=== PATIENT | female | born 1965 | race Caucasian/White ===

== ENCOUNTER 2019-02-28 11:00 | Outpatient (RCR) | payer OTHER, SELFPAY ==
[2019-02-06 09:05] VITALS: BP 158/92; PULSE 56; RESP 16; TEMP 36.3; BMI 39.6
--- NOTE | 2019-02-06 12:08 | PCM.WC.HP ---
(1) Wound of right lower extremity Status: Chronic Current Visit: Yes Code(s): S81.801A - Unspecified open wound, right lower leg, initial encounter Comment: Anterior and posterior right lower extremity traumatic, penetrating with fat layer exposed. (2) Bilateral lower extremity edema Status: Acute Current Visit: Yes Code(s): R60.0 - Localized edema History of Present Illness Date of Service: 02/06/19 Chief Complaint: Nonhealing right lower extremity wound status post work injury. History of Wound: Ms. Rodarte is a 53-year-old who was referred here due to nonhealing right lower extremity wound. 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 Initially seen in emergency room and had stitches to the wound. Followed up at an urgent care for removal however, on removal of the sutures posterior right lower extremity wounds was sensitive opened up. Subsequently seen by her primary care physician and was told to pack wound with gauze/Hydrogen peroxide which she indeed twice a day and again noted worsening of the wound. She reports drainage from the wound but denies chills, fever otherwise feeling of unwell. She states that she works for 12 hours standing on hard concrete most of the day. Past Medical History Past Medical History: Chronic Problems Wound of right lower extremity (Chronic) Anterior and posterior right lower extremity traumatic, penetrating with fat layer exposed. Allergies/Adverse Reactions: Allergies No Known Allergies Allergy (Verified 02/06/19 09:43) Home Medications: Ambulatory Orders Medication Instructions Recorded Allopurinol 100 mg PO DAILY PRN 02/06/19 Ciprofloxacin [Cipro] 500 mg PO BID 02/06/19 Hydrochlorothiazide mg PO DAILY 02/06/19 Metoprolol Tartrate [Lopressor] 100 mg PO DAILY 02/06/19 Pantoprazole Sodium [Protonix] 40 mg PO DAILY 02/06/19 Smoking Status: Never smoker Review of Systems Constitutional: Denies: Anorexia, Chills, Fever Eyes: Denies: Blurred vision, Pain, Redness HEENT: Denies: Difficulty Swallowing Cardiovascular: Denies: Chest Pain, Chest Tightness Respiratory: Denies: Hemoptysis Gastrointestinal: Denies: Abdominal Pain, Hematemesis, Vomiting Genitourinary: Denies: Hematuria Skin: Denies: Jaundice - Physical Exam Vital Signs Temp Pulse Resp BP 97.3 F L 56 L 16 158/92 H 02/06/19 09:05 02/06/19 09:05 02/06/19 09:05 02/06/19 09:05 General: Alert, Oriented x3, Cooperative, No apparent distress HEENT: Atraumatic, Normocephalic Oral: Moist Mucosa Neck: Supple Lungs: Normal air movement Cardiovascular: Regular rate, Regular Rhythm, Normal S1, Normal S2 Abdomen: Non Tender, Obese Extremities: No cyanosis, Edema Skin: Ulcer/ Wound Wound Measurements and Assessment WC - Nurse 1 - General Ulcer Measurement Start: 02/06/19 09:04 Freq: Status: Active Protocol: Activity Type Activity Date Activity User E-Sign Co-Sign Detail Recorded Client Recorded Date Recorded By Document 02/06/19 09:05 [facility] [id number] 02/06/19 09:30 [facility] 02/06/19 09:05 Wound Center Nurse 1 [Ulcer Assessment] #2- RT CALF CLUSTER -Combined with other wound No -Current Size (cm) - Length 1 -Current Size (cm) - Width 5.8 -Current Size (cm) - Depth 0.5 -Total Square Cm 5.8 -Date of Last Picture (Recall this 02/06/19 field) -Photo Taken Yes -Epithelialization None Present -Tunneling No -Undermining/Tunneling No -Circular Undermining No -Exudate Amt Small -Exudate Type Serosanguineous -Wound Margin Distinct, Outline Attached -Granulation Amt Small (1-33%) -Granulation Quality Red -Slough/Fibrin No -Necrosis Amt Large (67-100%) -Necrotic Tissue Type Adherent Slough -Texture (Maria Guadalupe-wound Skin Appearance) Assessed Scarring -Moisture (Maria Guadalupe-wound Skin Appearance Assessed ) -Color (Maria Guadalupe-wound Skin Appearance) Assessed Erythema -Temperature (Maria Guadalupe-wound Skin No Abnormality Appearance) (Pt Warm) -Tenderness on Palpation (Maria Guadalupe-wound Yes Skin Appearance) -Ulcer Cleansing Rinsed/ Irrigated with Saline -Foul Odor after Cleansing No -Anesthetic Used 5% Lidocaine Gel #1- RT HAWKINS -Combined with other wound No -Current Size (cm) - Length 0.1 -Current Size (cm) - Width 1.6 -Current Size (cm) - Depth 0.2 -Total Square Cm 0.16 -Date of Last Picture (Recall this 02/06/19 field) -Photo Taken Yes -Epithelialization None Present -Tunneling No -Undermining/Tunneling No -Circular Undermining No -Exudate Amt None Present -Wound Margin Distinct, Outline Attached -Granulation Amt None Present (0 %) -Slough/Fibrin Yes -Necrosis Amt Large (67-100%) -Necrotic Tissue Type Adherent Slough -Texture (Maria Guadalupe-wound Skin Appearance) Assessed Scarring -Moisture (Maria Guadalupe-wound Skin Appearance Assessed ) Dry/Scaly -Color (Maria Guadalupe-wound Skin Appearance) Assessed Erythema -Temperature (Maria Guadalupe-wound Skin No Abnormality Appearance) (Pt Warm) -Tenderness on Palpation (Maria Guadalupe-wound No Skin Appearance) -Ulcer Cleansing Rinsed/ Irrigated with Saline -Foul Odor after Cleansing No -Anesthetic Used 5% Lidocaine Gel [Edema Assessment] -Lower Limb Edema Present Yes -Right Calf (cm) 42.5 -Right Ankle (cm) 28.9 -Left Calf (cm) 40 -Left Ankle (cm) 24.6 WC - Nurse 2 - General Ulcer CM Notes Start: 02/06/19 09:04 Freq: Status: Active Protocol: Activity Type Activity Date Activity User E-Sign Co-Sign Detail Recorded Client Recorded Date Recorded By Document 02/06/19 09:46 MW [id number] 02/06/19 09:54 MW 02/06/19 09:46 Wound Center Nurse 2 [Procedure/Treatment] #2- RT CALF CLUSTER -Time 09:46 -Correct Patient Yes -Correct Side, Site, Position Yes -Correct Procedure Yes -Procedure Performed Yes -Type of Procedure Debridement -Clinical Debridement Subcutaneous -Post Debridement Size (cm) - Length 1.2 -Post Debridement Size (cm) - Width 6.0 -Post Debridement Size (cm) - Depth 1.2 -Total Square Cm 7.20 -Wound/Ulcer Outcome Not Healed -Ulcer Cleansing Rinsed/ Irrigated with Saline -Foul Odor after Cleansing No -Bioengineered Tissue No -Bleeding Controlled with Pressure -Offloading No -Treatment Response Procedure Tolerated Well #1- RT HAWKINS -Time 09:46 -Correct Patient Yes -Correct Side, Site, Position Yes -Correct Procedure Yes -Procedure Performed Yes -Type of Procedure Debridement -Clinical Debridement Subcutaneous -Post Debridement Size (cm) - Length 0.4 -Post Debridement Size (cm) - Width 4.3 -Post Debridement Size (cm) - Depth 0.1 -Total Square Cm 1.72 -Wound/Ulcer Outcome Not Healed -Ulcer Cleansing Rinsed/ Irrigated with Saline -Foul Odor after Cleansing No -Bioengineered Tissue No -Bleeding Controlled with Pressure -Offloading No -Treatment Response Procedure Tolerated Well [See Physician Procedure note for Specifics] Pain Scale: 0-10 Numeric [Pain] -Is Patient Pain Free? Yes Musculoskeletal: No Muscle Wasting Neurological: Cranial nerves II-XII grossly intact Psych/Mental Status: Normal Affect Debridement Note Post-Debridement Measurements/Treatment WC - Nurse 2 - General Ulcer CM Notes Start: 02/06/19 09:04 Freq: Status: Active Protocol: Activity Type Activity Date Activity User E-Sign Co-Sign Detail Recorded Client Recorded Date Recorded By Document 02/06/19 09:46 MW [id number] 02/06/19 09:54 MW 02/06/19 09:46 Wound Center Nurse 2 #2- RT CALF CLUSTER -Time 09:46 -Correct Patient Yes -Correct Side, Site, Position Yes -Correct Procedure Yes -Procedure Performed Yes -Type of Procedure Debridement -Clinical Debridement Subcutaneous -Post Debridement Size (cm) - Length 1.2 -Post Debridement Size (cm) - Width 6.0 -Post Debridement Size (cm) - Depth 1.2 -Total Square Cm 7.20 -Wound/Ulcer Outcome Not Healed -Ulcer Cleansing Rinsed/ Irrigated with Saline -Foul Odor after Cleansing No -Bioengineered Tissue No -Bleeding Controlled with Pressure -Offloading No -Treatment Response Procedure Tolerated Well #1- RT HAWKINS -Time 09:46 -Correct Patient Yes -Correct Side, Site, Position Yes -Correct Procedure Yes -Procedure Performed Yes -Type of Procedure Debridement -Clinical Debridement Subcutaneous -Post Debridement Size (cm) - Length 0.4 -Post Debridement Size (cm) - Width 4.3 -Post Debridement Size (cm) - Depth 0.1 -Total Square Cm 1.72 -Wound/Ulcer Outcome Not Healed -Ulcer Cleansing Rinsed/ Irrigated with Saline -Foul Odor after Cleansing No -Bioengineered Tissue No -Bleeding Controlled with Pressure -Offloading No -Treatment Response Procedure Tolerated Well Pain Scale: 0-10 Numeric Is Patient Pain Free? Yes Wound debrided: Right lower ( Hawkins Cluster ) Wound Grade/Stage: Stage II Type of Debridement: Excisional debridement Anesthesia Used: 4% Lidocaine Solution Depth: Down to and including healthy tissue, in the subcutaneous layer Percentage of wound debrided: 100 Instrument Used: 3mm curette Tissue Removed: Slough and devitalized tissue Severity: Fat Layer Exposed Amount of bleeding with debridement: Mild Bleeding Controlled with: Pressure Patient tolerated procedure well - Additional Wound Wound debrided: Right lower posterior cluster Wound Grade/Stage: Stage III Type of Debridement: Excisional debridement Anesthesia Used: 4% Lidocaine Solution Depth: Down to and including healthy tissue, in the subcutaneous layer Percentage of wound debrided: 100 Instrument Used: 5mm curette Tissue Removed: Slough and devitalized tissue Severity: Fat Layer Exposed Amount of bleeding with debridement: Mild Bleeding Controlled with: Pressure Patient tolerated procedure: Patient tolerated procedure well Assessment/Plan Active Problems Wound of right lower extremity (Chronic) Anterior and posterior right lower extremity traumatic, penetrating with fat layer exposed. Bilateral lower extremity edema (Acute) Assessment: Nonhealing traumatic right lower extremity anterior and posterior ulcers status post work injury with fat layer exposed. Plan: Debridement done as documented above, procedure was well-tolerated. Posterior wound with significant depth and slough. Cultures taken. Aquacel daily with Adaptic over top. Double layer Tubigrip's with Tomi wrap for edema management. Light duty recommended. Advised patient to elevate her lower extremities when seated and in bed. All the questions were answered and she was advised to call with any further questions or concerns. Follow-up in 1 week for courtesy visit. This note was generated with [employer] dictation software. It may contain incorrect words, spelling, and punctuation that were not noted in checking the note before signing.
[2019-02-12 15:09] VITALS: BP 132/91; PULSE 61; RESP 20; TEMP 36.1; BMI 39.6
--- NOTE | 2019-02-12 15:23 | PN.PCM_ITS ---
(1) Wound of right lower extremity Status: Chronic Code(s): S81.801A - Unspecified open wound, right lower leg, initial encounter Comment: Anterior and posterior right lower extremity traumatic, penetrating with fat layer exposed. (2) Bilateral lower extremity edema Status: Chronic Code(s): R60.0 - Localized edema Type of Wound Date of Service: 02/12/19 Chief Complaint: Nonhealing right lower extremity wound status post work injury. History of Wound: Ms. Rodarte is a 53-year-old who was referred here due to nonhealing right lower extremity wound. 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 Initially seen in emergency room and had stitches to the wound. Followed up at an urgent care for removal however, on removal of the sutures posterior right lower extremity wounds was sensitive opened up. Subsequently seen by her primary care physician and was told to pack wound with gauze/Hydrogen peroxide which she indeed twice a day and again noted worsening of the wound. She reports drainage from the wound but denies chills, fever otherwise feeling of unwell. She states that she works for 12 hours standing on hard concrete most of the day. Progress of Wound: Improved - Physical Exam Vital Signs Temp Pulse Resp BP 96.9 F L 61 20 H 132/91 H 02/12/19 15:09 02/12/19 15:09 02/12/19 15:09 02/12/19 15:09 General: Alert, Oriented x3, Cooperative HEENT: Atraumatic Oral: Moist Mucosa Lungs: Normal air movement Cardiovascular: Regular rate Extremities: Capillary Refill Less than 3 Seconds, Edema, Peripheral Pulses Normal Skin: Ulcer/ Wound - right anterior lower leg and and right posterior lower leg Wound Measurements and Assessment - Nurse 1 - General Ulcer Measurement Start: 02/06/19 09:04 Freq: Status: Active Protocol: Activity Type Activity Date Activity User E-Sign Co-Sign Detail Recorded Client Recorded Date Recorded By Document 02/12/19 15:09 CAMMY [id number] 02/12/19 15:16 CAMMY 02/12/19 15:09 Wound Center Nurse 1 [Ulcer Assessment] #2- RT CALF CLUSTER -Combined with other wound No -Current Size (cm) - Length 0.8 -Current Size (cm) - Width 4.1 -Current Size (cm) - Depth 0.7 -Total Square Cm 3.28 -Photo Taken No -Epithelialization Small 1-33% -Tunneling No -Undermining/Tunneling No -Circular Undermining No -Exudate Amt Medium -Exudate Type Serosanguineous -Wound Margin Flat & Intact -Granulation Amt Large (67-100%) -Granulation Quality Red -Slough/Fibrin Yes -Necrosis Amt Medium (34-66%) -Necrotic Tissue Type Adherent Slough -Structure Exposed N/A -Texture (Maria Guadalupe-wound Skin Appearance) Assessed Localized Edema -Moisture (Maria Guadalupe-wound Skin Appearance Assessed ) Dry/Scaly -Color (Maria Guadalupe-wound Skin Appearance) Assessed -Temperature (Maria Guadalupe-wound Skin No Abnormality Appearance) (Pt Warm) -Tenderness on Palpation (Maria Guadalupe-wound No Skin Appearance) -Ulcer Cleansing Rinsed/ Irrigated with Saline -Foul Odor after Cleansing No -Anesthetic Used 4% Lidocaine Solution #1- RT SAMANIEGO -Combined with other wound No -Current Size (cm) - Length 0.4 -Current Size (cm) - Width 1 -Current Size (cm) - Depth 0.1 -Total Square Cm 0.4 -Photo Taken No -Epithelialization Small 1-33% -Tunneling No -Undermining/Tunneling No -Circular Undermining No -Exudate Amt Small -Exudate Type Serosanguineous -Wound Margin Flat & Intact -Granulation Amt Small (1-33%) -Granulation Quality [place] -Slough/Fibrin Yes -Necrosis Amt Large (67-100%) -Necrotic Tissue Type Adherent Slough -Structure Exposed N/A -Texture (Maria Guadalupe-wound Skin Appearance) Assessed Localized Edema -Moisture (Maria Guadalupe-wound Skin Appearance Assessed ) Dry/Scaly -Color (Maria Guadalupe-wound Skin Appearance) Assessed Hemosiderin Staining -Temperature (Maria Guadalupe-wound Skin No Abnormality Appearance) (Pt Warm) -Tenderness on Palpation (Maria Guadalupe-wound No Skin Appearance) -Ulcer Cleansing Rinsed/ Irrigated with Saline -Foul Odor after Cleansing No -Anesthetic Used 4% Lidocaine Solution [Edema Assessment] -Lower Limb Edema Present Yes -Right Calf (cm) 43.7 -Right Ankle (cm) 28.6 Musculoskeletal: No Tenderness to Palpation of Joints or Extremities Neurological: Neuro grossly intact Psych/Mental Status: Normal Affect, Appropriate Debridement Note Post-Debridement Measurements/Treatment WC - Nurse 2 - General Ulcer CM Notes Start: 02/06/19 09:04 Freq: Status: Active Protocol: Activity Type Activity Date Activity User E-Sign Co-Sign Detail Recorded Client Recorded Date Recorded By Document 02/06/19 09:46 MW [id number] 02/06/19 09:54 MW 02/06/19 09:46 Wound Center Nurse 2 #2- RT CALF CLUSTER -Time 09:46 -Correct Patient Yes -Correct Side, Site, Position Yes -Correct Procedure Yes -Procedure Performed Yes -Type of Procedure Debridement -Clinical Debridement Subcutaneous -Post Debridement Size (cm) - Length 1.2 -Post Debridement Size (cm) - Width 6.0 -Post Debridement Size (cm) - Depth 1.2 -Total Square Cm 7.20 -Wound/Ulcer Outcome Not Healed -Ulcer Cleansing Rinsed/ Irrigated with Saline -Foul Odor after Cleansing No -Bioengineered Tissue No -Bleeding Controlled with Pressure -Offloading No -Treatment Response Procedure Tolerated Well #1- RT SAMANIEGO -Time 09:46 -Correct Patient Yes -Correct Side, Site, Position Yes -Correct Procedure Yes -Procedure Performed Yes -Type of Procedure Debridement -Clinical Debridement Subcutaneous -Post Debridement Size (cm) - Length 0.4 -Post Debridement Size (cm) - Width 4.3 -Post Debridement Size (cm) - Depth 0.1 -Total Square Cm 1.72 -Wound/Ulcer Outcome Not Healed -Ulcer Cleansing Rinsed/ Irrigated with Saline -Foul Odor after Cleansing No -Bioengineered Tissue No -Bleeding Controlled with Pressure -Offloading No -Treatment Response Procedure Tolerated Well Pain Scale: 0-10 Numeric Is Patient Pain Free? Yes Wound debrided: right anterior lower leg Laterality: Right Type of Debridement: Excisional debridement Anesthesia Used: 5% Lidocaine Gel Depth: Down to and including healthy tissue, in the subcutaneous layer Percentage of wound debrided: 100 Instrument Used: 5mm curette Tissue Removed: Subcutaneous tissue and slough Severity: Fat Layer Exposed Amount of bleeding with debridement: Mild Bleeding Controlled with: Pressure Patient tolerated procedure well - Additional Wound Wound debrided: Right posterior lower leg Laterality: Right Type of Debridement: Excisional debridement Anesthesia Used: 5% Lidocaine Gel Depth: Down to and including healthy tissue, in the subcutaneous layer Percentage of wound debrided: 100 Instrument Used: 5mm curette Tissue Removed: Subcutaneous tissue and slough Severity: Fat Layer Exposed Amount of bleeding with debridement: Mild Bleeding Controlled with: Pressure Patient tolerated procedure: Patient tolerated procedure well Assessment/Plan Assessment: Nonhealing traumatic right lower extremity anterior and posterior ulcers status post work injury with fat layer exposed. Plan: Today was a courtesy visit for Dr. Obrien. Debridement done as documented above, procedure was well-tolerated. Patient completed antibiotics for cellulitis, which is improved. Cultures from 02/06/19 grew Anaerobic cocci and Provotella bivia. Will start her on Doxycycline and flagyl. Continue Aquacel daily with Adaptic over top. Double layer Tubigrip's for edema management. Will stop the KRZYSZTOF wrap while she is at work due to her having issues getting her shoe on with the KRZYSZTOF wrap. Light duty recommended. Advised patient to elevate her lower extremities when seated and in bed. All the questions were answered and she was advised to call with any further questions or concerns. Follow-up in 1 week. Code Visit [id number]: [id number] Alley subq tissue 20 sq cm/<
[2019-02-20 11:14] VITALS: BP 150/102; PULSE 101; RESP 20; TEMP 36.6; BMI 39.6
--- NOTE | 2019-02-20 12:49 | PCM.WC.PN ---
(1) Wound of right lower extremity Status: Chronic Current Visit: Yes Code(s): S81.801A - Unspecified open wound, right lower leg, initial encounter Comment: Anterior and posterior right lower extremity traumatic, penetrating with fat layer exposed. (2) Bilateral lower extremity edema Status: Chronic Current Visit: Yes Code(s): R60.0 - Localized edema Type of Wound Date of Service: 02/20/19 Chief Complaint: Nonhealing right lower extremity wound status post work injury. History of Wound: Ms. Rodarte is a 53-year-old who was referred here due to nonhealing right lower extremity wound. 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 Initially seen in emergency room and had stitches to the wound. Followed up at an urgent care for removal however, on removal of the sutures posterior right lower extremity wounds was sensitive opened up. Subsequently seen by her primary care physician and was told to pack wound with gauze/Hydrogen peroxide which she indeed twice a day and again noted worsening of the wound. She reports drainage from the wound but denies chills, fever otherwise feeling of unwell. She states that she works for 12 hours standing on hard concrete most of the day. Progress of Wound: Right anterior is almost healed. Right posterior is improved. - Physical Exam Vital Signs Temp Pulse Resp BP 97.8 F 101 H 20 H 150/102 H 02/20/19 11:14 02/20/19 11:14 02/20/19 11:14 02/20/19 11:14 General: Alert, Oriented x3, Cooperative HEENT: Atraumatic Oral: Moist Mucosa Lungs: Normal air movement Cardiovascular: Regular rate Extremities: Capillary Refill Less than 3 Seconds, Edema, Peripheral Pulses Normal Skin: Ulcer/ Wound - Right anterior lower leg almost healed, right posterior leg wound is improved Wound Measurements and Assessment WC - Nurse 1 - General Ulcer Measurement Start: 02/06/19 09:04 Freq: Status: Active Protocol: Activity Type Activity Date Activity User E-Sign Co-Sign Detail Recorded Client Recorded Date Recorded By Document 02/20/19 11:14 DL [id number] 02/20/19 11:22 DL 02/20/19 11:14 Wound Center Nurse 1 [Ulcer Assessment] #2- RT CALF CLUSTER -Current Size (cm) - Length 0.8 -Current Size (cm) - Width 3.8 -Current Size (cm) - Depth 0.6 -Total Square Cm 3.04 -Photo Taken No -Exudate Amt Small -Exudate Type Serosanguineous -Wound Margin Distinct, Outline Attached -Granulation Amt Medium (34-66%) -Granulation Quality Red -Necrosis Amt Medium (34-66%) -Necrotic Tissue Type Adherent Slough -Structure Exposed N/A -Texture (Maria Guadalupe-wound Skin Appearance) Scarring -Moisture (Maria Guadalupe-wound Skin Appearance No Abnormality ) -Color (Maria Guadalupe-wound Skin Appearance) Erythema,Rubor -Temperature (Maria Guadalupe-wound Skin No Abnormality Appearance) (Pt Warm) -Tenderness on Palpation (Maria Guadalupe-wound No Skin Appearance) -Ulcer Cleansing Wound Cleanser -Foul Odor after Cleansing No -Anesthetic Used 4% Lidocaine Solution #1- RT SAMANIEGO -Current Size (cm) - Length 0.5 -Current Size (cm) - Width 0.1 -Current Size (cm) - Depth 0.1 -Total Square Cm 0.05 -Photo Taken No -Exudate Amt None Present -Wound Margin Flat & Intact -Granulation Amt Large (67-100%) -Granulation Quality Pale -Necrosis Amt Small (1-33%) -Necrotic Tissue Type Adherent Slough -Structure Exposed N/A -Texture (Maria Guadalupe-wound Skin Appearance) Scarring -Moisture (Maria Guadalupe-wound Skin Appearance No Abnormality ) -Color (Maria Guadalupe-wound Skin Appearance) Hemosiderin Staining -Temperature (Maria Guadalupe-wound Skin No Abnormality Appearance) (Pt Warm) -Tenderness on Palpation (Maria Guadalupe-wound No Skin Appearance) -Ulcer Cleansing Wound Cleanser -Foul Odor after Cleansing No -Anesthetic Used 4% Lidocaine Solution [Edema Assessment] -Right Calf (cm) 40.7 -Right Ankle (cm) 26.2 WC - Nurse 2 - General Ulcer CM Notes Start: 02/06/19 09:04 Freq: Status: Active Protocol: Activity Type Activity Date Activity User E-Sign Co-Sign Detail Recorded Client Recorded Date Recorded By Document 02/20/19 12:07 CAMMY [id number] 02/20/19 12:10 CAMMY 02/20/19 12:07 Wound Center Nurse 2 [Procedure/Treatment] #2- RT CALF CLUSTER -Time 12:09 -Correct Patient Yes -Correct Side, Site, Position Yes -Correct Procedure Yes -Procedure Performed Yes -Type of Procedure Debridement -Clinical Debridement Subcutaneous -Post Debridement Size (cm) - Length 0.9 -Post Debridement Size (cm) - Width 4.2 -Post Debridement Size (cm) - Depth 0.8 -Total Square Cm 3.78 -Wound/Ulcer Outcome Not Healed -Ulcer Cleansing Rinsed/ Irrigated with Saline -Foul Odor after Cleansing No -Bioengineered Tissue No -Bleeding Controlled with Pressure -Offloading No -Treatment Response Procedure Tolerated Well #1- RT SAMANIEGO -Time 12:09 -Correct Patient Yes -Correct Side, Site, Position Yes -Correct Procedure Yes -Procedure Performed Yes -Type of Procedure Debridement -Clinical Debridement Subcutaneous -Post Debridement Size (cm) - Length 0.2 -Post Debridement Size (cm) - Width 0.9 -Post Debridement Size (cm) - Depth 0.2 -Total Square Cm 0.18 -Wound/Ulcer Outcome Not Healed -Ulcer Cleansing Rinsed/ Irrigated with Saline -Foul Odor after Cleansing No -Bioengineered Tissue No -Bleeding Controlled with Pressure -Offloading No -Treatment Response Procedure Tolerated Well [See Physician Procedure note for Specifics] Pain Scale: 0-10 Numeric [Pain] -Is Patient Pain Free? Yes Musculoskeletal: No Tenderness to Palpation of Joints or Extremities Neurological: Neuro grossly intact Psych/Mental Status: Normal Affect, Appropriate Debridement Note Post-Debridement Measurements/Treatment WC - Nurse 2 - General Ulcer CM Notes Start: 02/06/19 09:04 Freq: Status: Active Protocol: Activity Type Activity Date Activity User E-Sign Co-Sign Detail Recorded Client Recorded Date Recorded By Document 02/06/19 09:46 MW [id number] 02/06/19 09:54 MW Document 02/12/19 15:31 [id number] 02/12/19 15:35 Document 02/20/19 12:07 [id number] 02/20/19 12:10 02/06/19 02/12/19 02/20/19 09:46 15:31 12:07 Wound Center Nurse 2 #2- RT CALF CLUSTER -Time 09:46 15:34 12:09 -Correct Patient Yes Yes Yes -Correct Side, Site, Position Yes Yes Yes -Correct Procedure Yes Yes Yes -Procedure Performed Yes Yes Yes -Type of Procedure Debridement Debridement Debridement -Clinical Debridement Subcutaneous Subcutaneous Subcutaneous -Post Debridement Size (cm) - Length 1.2 5.2 0.9 -Post Debridement Size (cm) - Width 6.0 1.2 4.2 -Post Debridement Size (cm) - Depth 1.2 1.0 0.8 -Total Square Cm 7.20 6.24 3.78 -Wound/Ulcer Outcome Not Healed Not Healed Not Healed -Ulcer Cleansing Rinsed/ Rinsed/ Rinsed/ Irrigated with Irrigated with Irrigated with Saline Saline Saline -Foul Odor after Cleansing No No No -Bioengineered Tissue No No No -Bleeding Controlled with Pressure Pressure Pressure -Offloading No No No -Treatment Response Procedure Procedure Procedure Tolerated Well Tolerated Well Tolerated Well #1- RT SAMANIEGO -Time 09:46 15:34 12:09 -Correct Patient Yes Yes Yes -Correct Side, Site, Position Yes Yes Yes -Correct Procedure Yes Yes Yes -Procedure Performed Yes Yes Yes -Type of Procedure Debridement Debridement Debridement -Clinical Debridement Subcutaneous Subcutaneous Subcutaneous -Post Debridement Size (cm) - Length 0.4 0.4 0.2 -Post Debridement Size (cm) - Width 4.3 0.8 0.9 -Post Debridement Size (cm) - Depth 0.1 0.3 0.2 -Total Square Cm 1.72 0.32 0.18 -Wound/Ulcer Outcome Not Healed Not Healed Not Healed -Ulcer Cleansing Rinsed/ Rinsed/ Rinsed/ Irrigated with Irrigated with Irrigated with Saline Saline Saline -Foul Odor after Cleansing No No No -Bioengineered Tissue No No No -Bleeding Controlled with Pressure Pressure Pressure -Offloading No No No -Treatment Response Procedure Procedure Procedure Tolerated Well Tolerated Well Tolerated Well Pain Scale: 0-10 Numeric Is Patient Pain Free? Yes Yes Yes Wound debrided: Right anterior lower leg Type of Debridement: Excisional debridement Anesthesia Used: 4% Lidocaine Solution Depth: Down to and including healthy tissue Percentage of wound debrided: 100 Instrument Used: 3mm curette Tissue Removed: Subcutaneous tissue and slough Severity: Limited To Skin Breakdown Amount of bleeding with debridement: Mild Bleeding Controlled with: Pressure Patient tolerated procedure well - Additional Wound Wound debrided: Right posterior lower leg Type of Debridement: Excisional debridement Anesthesia Used: 4% Lidocaine Solution Depth: Down to and including healthy tissue, in the subcutaneous layer Percentage of wound debrided: 100 Instrument Used: 5mm curette Tissue Removed: subcutaneous tissue and slough Severity: Fat Layer Exposed Amount of bleeding with debridement: Mild Bleeding Controlled with: Pressure Patient tolerated procedure: Patient tolerated procedure well Assessment/Plan Active Problems Wound of right lower extremity (Chronic) Anterior and posterior right lower extremity traumatic, penetrating with fat layer exposed. Bilateral lower extremity edema (Chronic) Assessment: Nonhealing traumatic right lower extremity anterior and posterior ulcers status post work injury with fat layer exposed. Plan: Today was a courtesy visit for Dr. Obrien. Debridement done as documented above, procedure was well-tolerated. Patient completed antibiotics for cellulitis, which is improved. Cultures from 02/06/19 grew Anaerobic cocci and Provotella bivia. Will start her on Doxycycline and flagyl. Continue Aquacel daily with Adaptic over top. Double layer Tubigrip's for edema management. Will stop the KRZYSZTOF wrap while she is at work due to her having issues getting her shoe on with the KRZYSZTOF wrap. She is doing much better and would like to return to her normal activity at work. She is allowed to do normal activity as long as she is wearing her compression at work and she is elevating her legs when on her breaks. She verbalized understanding. All the questions were answered and she was advised to call with any further questions or concerns. Follow-up in 1 week. Code Visit [id number]: [id number] Alley subq tissue 20 sq cm/<
[2019-02-28 11:13] VITALS: BP 127/74; PULSE 57; RESP 18; TEMP 36.5; BMI 39.6
--- NOTE | 2019-02-28 19:23 | PCM.WC.PN ---
(1) Wound of right lower extremity Status: Chronic Current Visit: Yes Code(s): S81.801A - Unspecified open wound, right lower leg, initial encounter Comment: Anterior and posterior right lower extremity traumatic, penetrating with fat layer exposed. (2) Bilateral lower extremity edema Status: Chronic Current Visit: Yes Code(s): R60.0 - Localized edema Type of Wound Date of Service: 02/28/19 Chief Complaint: Nonhealing right lower extremity wound status post work injury. History of Wound: Ms. Rodarte is a 53-year-old who was referred here due to nonhealing right lower extremity wound. 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 Initially seen in emergency room and had stitches to the wound. Followed up at an urgent care for removal however, on removal of the sutures posterior right lower extremity wounds was sensitive opened up. Subsequently seen by her primary care physician and was told to pack wound with gauze/Hydrogen peroxide which she indeed twice a day and again noted worsening of the wound. She reports drainage from the wound but denies chills, fever otherwise feeling of unwell. She states that she works for 12 hours standing on hard concrete most of the day. Progress of Wound: Right [place]/anterior is healed. Right posterior is improving. No new concerns at this time. - Physical Exam Vital Signs Temp Pulse Resp BP 97.7 F L 57 L 18 127/74 H 02/28/19 11:13 02/28/19 11:13 02/28/19 11:13 02/28/19 11:13 General: Alert, Oriented x3, Cooperative, No apparent distress HEENT: Atraumatic, Normocephalic Oral: Moist Mucosa Neck: Supple Lungs: Normal air movement Extremities: No cyanosis Skin: Ulcer/ Wound Wound Measurements and Assessment WC - Nurse 1 - General Ulcer Measurement Start: 02/06/19 09:04 Freq: Status: Active Protocol: Activity Type Activity Date Activity User E-Sign Co-Sign Detail Recorded Client Recorded Date Recorded By Document 02/28/19 11:13 DL [id number] 02/28/19 11:20 DL 02/28/19 11:13 Wound Center Nurse 1 [Ulcer Assessment] #2- RT CALF CLUSTER -Current Size (cm) - Length 0.5 -Current Size (cm) - Width 3.7 -Current Size (cm) - Depth 0.5 -Total Square Cm 1.85 -Photo Taken No -Exudate Amt None Present -Wound Margin Distinct, Outline Attached -Granulation Amt Medium (34-66%) -Granulation Quality [place] -Necrosis Amt Medium (34-66%) -Necrotic Tissue Type Adherent Slough -Texture (Maria Guadalupe-wound Skin Appearance) Localized Edema ,Scarring -Color (Maria Guadalupe-wound Skin Appearance) Erythema,Rubor -Temperature (Maria Guadalupe-wound Skin No Abnormality Appearance) (Pt Warm) -Tenderness on Palpation (Maria Guadalupe-wound No Skin Appearance) -Ulcer Cleansing Rinsed/ Irrigated with Saline -Foul Odor after Cleansing No -Anesthetic Used 5% Lidocaine Gel #1- RT [place] -Current Size (cm) - Length 0 -Current Size (cm) - Width 0 -Current Size (cm) - Depth 0 -Total Square Cm 0 -Photo Taken Yes -Exudate Amt None Present -Wound Margin Flat & Intact -Granulation Amt Large (67-100%) -Granulation Quality [place] -Necrosis Amt None Present (0 %) -Structure Exposed N/A -Texture (Maria Guadalupe-wound Skin Appearance) Scarring -Moisture (Maria Guadalupe-wound Skin Appearance No Abnormality ) -Color (Maria Guadalupe-wound Skin Appearance) No Abnormality -Temperature (Maria Guadalupe-wound Skin No Abnormality Appearance) (Pt Warm) -Tenderness on Palpation (Maria Guadalupe-wound No Skin Appearance) -Ulcer Cleansing Rinsed/ Irrigated with Saline -Foul Odor after Cleansing No [Edema Assessment] -Right Calf (cm) 38.5 -Right Ankle (cm) 26 WC - Nurse 2 - General Ulcer CM Notes Start: 02/06/19 09:04 Freq: Status: Active Protocol: Activity Type Activity Date Activity User E-Sign Co-Sign Detail Recorded Client Recorded Date Recorded By Document 02/28/19 12:02 MW [id number] 02/28/19 12:05 MW 02/28/19 12:02 Wound Center Nurse 2 [Procedure/Treatment] #2- RT CALF CLUSTER -Time 12:02 -Correct Patient Yes -Correct Side, Site, Position Yes -Correct Procedure Yes -Procedure Performed Yes -Type of Procedure Debridement -Clinical Debridement Subcutaneous -Post Debridement Size (cm) - Length 0.5 -Post Debridement Size (cm) - Width 3.5 -Post Debridement Size (cm) - Depth 0.6 -Total Square Cm 1.75 -Wound/Ulcer Outcome Not Healed -Ulcer Cleansing Rinsed/ Irrigated with Saline -Foul Odor after Cleansing No -Bioengineered Tissue No -Bleeding Controlled with Pressure -Offloading No -Treatment Response Procedure Tolerated Well #1- RT [place] -Time 12:02 -Correct Patient Yes -Correct Side, Site, Position Yes -Correct Procedure Yes -Procedure Performed No -Wound/Ulcer Outcome Healed- Epithelialized -Ulcer Cleansing Not Cleansed -Bleeding Controlled with NA -Offloading No -Treatment Response Procedure Tolerated Well [See Physician Procedure note for Specifics] Pain Scale: 0-10 Numeric [Pain] -Is Patient Pain Free? Yes Musculoskeletal: No Muscle Wasting Neurological: Cranial nerves II-XII grossly intact Psych/Mental Status: Normal Affect Debridement Note Post-Debridement Measurements/Treatment WC - Nurse 2 - General Ulcer CM Notes Start: 02/06/19 09:04 Freq: Status: Active Protocol: Activity Type Activity Date Activity User E-Sign Co-Sign Detail Recorded Client Recorded Date Recorded By Document 02/06/19 09:46 MW [id number] 02/06/19 09:54 MW Document 02/12/19 15:31 [id number] 02/12/19 15:35 JF Document 02/20/19 12:07 JF [id number] 02/20/19 12:10 JF Document 02/28/19 12:02 MW [id number] 02/28/19 12:05 MW 02/06/19 02/12/19 02/20/19 09:46 15:31 12:07 Wound Center Nurse 2 #2- RT CALF CLUSTER -Time 09:46 15:34 12:09 -Correct Patient Yes Yes Yes -Correct Side, Site, Position Yes Yes Yes -Correct Procedure Yes Yes Yes -Procedure Performed Yes Yes Yes -Type of Procedure Debridement Debridement Debridement -Clinical Debridement Subcutaneous Subcutaneous Subcutaneous -Post Debridement Size (cm) - Length 1.2 5.2 0.9 -Post Debridement Size (cm) - Width 6.0 1.2 4.2 -Post Debridement Size (cm) - Depth 1.2 1.0 0.8 -Total Square Cm 7.20 6.24 3.78 -Wound/Ulcer Outcome Not Healed Not Healed Not Healed -Ulcer Cleansing Rinsed/ Rinsed/ Rinsed/ Irrigated with Irrigated with Irrigated with Saline Saline Saline -Foul Odor after Cleansing No No No -Bioengineered Tissue No No No -Bleeding Controlled with Pressure Pressure Pressure -Offloading No No No -Treatment Response Procedure Procedure Procedure Tolerated Well Tolerated Well Tolerated Well #1- RT [place] -Time 09:46 15:34 12:09 -Correct Patient Yes Yes Yes -Correct Side, Site, Position Yes Yes Yes -Correct Procedure Yes Yes Yes -Procedure Performed Yes Yes Yes -Type of Procedure Debridement Debridement Debridement -Clinical Debridement Subcutaneous Subcutaneous Subcutaneous -Post Debridement Size (cm) - Length 0.4 0.4 0.2 -Post Debridement Size (cm) - Width 4.3 0.8 0.9 -Post Debridement Size (cm) - Depth 0.1 0.3 0.2 -Total Square Cm 1.72 0.32 0.18 -Wound/Ulcer Outcome Not Healed Not Healed Not Healed -Ulcer Cleansing Rinsed/ Rinsed/ Rinsed/ Irrigated with Irrigated with Irrigated with Saline Saline Saline -Foul Odor after Cleansing No No No -Bioengineered Tissue No No No -Bleeding Controlled with Pressure Pressure Pressure -Offloading No No No -Treatment Response Procedure Procedure Procedure Tolerated Well Tolerated Well Tolerated Well Pain Scale: 0-10 Numeric Is Patient Pain Free? Yes Yes Yes 02/28/19 12:02 Wound Center Nurse 2 #2- RT CALF CLUSTER -Time 12:02 -Correct Patient Yes -Correct Side, Site, Position Yes -Correct Procedure Yes -Procedure Performed Yes -Type of Procedure Debridement -Clinical Debridement Subcutaneous -Post Debridement Size (cm) - Length 0.5 -Post Debridement Size (cm) - Width 3.5 -Post Debridement Size (cm) - Depth 0.6 -Total Square Cm 1.75 -Wound/Ulcer Outcome Not Healed -Ulcer Cleansing Rinsed/ Irrigated with Saline -Foul Odor after Cleansing No -Bioengineered Tissue No -Bleeding Controlled with Pressure -Offloading No -Treatment Response Procedure Tolerated Well #1- RT [place] -Time 12:02 -Correct Patient Yes -Correct Side, Site, Position Yes -Correct Procedure Yes -Procedure Performed No -Type of Procedure -Clinical Debridement -Post Debridement Size (cm) - Length -Post Debridement Size (cm) - Width -Post Debridement Size (cm) - Depth -Total Square Cm -Wound/Ulcer Outcome Healed- Epithelialized -Ulcer Cleansing Not Cleansed -Foul Odor after Cleansing -Bioengineered Tissue -Bleeding Controlled with NA -Offloading No -Treatment Response Procedure Tolerated Well Pain Scale: 0-10 Numeric Is Patient Pain Free? Yes Wound debrided: Right lower extremity (posterior) Wound Grade/Stage: Stage 3 Type of Debridement: Excisional debridement Anesthesia Used: 4% Lidocaine Solution Depth: Down to and including healthy tissue, in the subcutaneous layer Percentage of wound debrided: 100 Instrument Used: 3mm curette Tissue Removed: Slough and devitalized tissue Severity: Fat Layer Exposed Amount of bleeding with debridement: Mild Bleeding Controlled with: Pressure Patient tolerated procedure well Assessment/Plan Active Problems Wound of right lower extremity (Chronic) Anterior and posterior right lower extremity traumatic, penetrating with fat layer exposed. Bilateral lower extremity edema (Chronic) Assessment: Nonhealing traumatic right lower extremity anterior and posterior ulcers status post work injury with fat layer exposed. Plan: Debridement done as documented above, procedure was well-tolerated. Continue Aquacel daily with Adaptic over top. Double layer Tubigrip's for edema management. Continue increased protein intake. Elevate lower extremities when seated in bed. All her questions were answered and she was advised to call with any further questions or concerns. Follow-up in 2 weeks due to the holiday.
== END 2019-03-03 23:59 ==
LOC: WC 11:00
PROVIDERS: Visit Provider Internal Medicine
DX: S81.811A Laceration without foreign body, right lower leg, initial encounter (principal); W31.9XXA Contact with unspecified machinery, initial encounter; Y93.89 Activity, other specified; Y92.89 Other specified places as the place of occurrence of the external cause; Y99.0 Civilian activity done for income or pay; R60.0 Localized edema
CPT/HCPCS: 11042; 87070; 87075; 87076; 87077; 87186; 87205; 99203; G0463

== ENCOUNTER 2019-03-28 10:45 | Outpatient (RCR) | payer OTHER, SELFPAY ==
[2019-03-04 01:02] VITALS: BP 127/74; PULSE 57; RESP 18; TEMP 36.5
[2019-03-14 11:46] VITALS: BP 143/91; PULSE 60; RESP 18; TEMP 35.8; BMI 39.6
--- NOTE | 2019-03-14 12:15 | PCM.WC.PN ---
(1) Bilateral lower extremity edema Status: Chronic Current Visit: Yes Code(s): R60.0 - Localized edema (2) Wound of right lower extremity Status: Chronic Current Visit: Yes Code(s): S81.801A - Unspecified open wound, right lower leg, initial encounter Comment: Anterior and posterior right lower extremity traumatic, penetrating with fat layer exposed. Type of Wound Date of Service: 03/14/19 Chief Complaint: Nonhealing right lower extremity wound status post work injury. History of Wound: Ms. Rodarte is a 53-year-old who was referred here due to nonhealing right lower extremity wound. 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 Initially seen in emergency room and had stitches to the wound. Followed up at an urgent care for removal however, on removal of the sutures posterior right lower extremity wounds was sensitive opened up. Subsequently seen by her primary care physician and was told to pack wound with gauze/Hydrogen peroxide which she indeed twice a day and again noted worsening of the wound. She reports drainage from the wound but denies chills, fever otherwise feeling of unwell. She states that she works for 12 hours standing on hard concrete most of the day. Progress of Wound: Improving. No new concerns at this time. - Physical Exam Vital Signs Temp Pulse Resp BP 96.4 F L 60 18 143/91 H 03/14/19 11:46 03/14/19 11:46 03/14/19 11:46 03/14/19 11:46 General: Alert, Oriented x3, Cooperative, No apparent distress HEENT: Atraumatic, Normocephalic Oral: Moist Mucosa Neck: Supple Extremities: No cyanosis Skin: Ulcer/ Wound Wound Measurements and Assessment WC - Nurse 1 - General Ulcer Measurement Start: 03/14/19 11:46 Freq: Status: Active Protocol: Activity Type Activity Date Activity User E-Sign Co-Sign Detail Recorded Client Recorded Date Recorded By Document 03/14/19 11:46 DV [id number] 03/14/19 11:52 DV 03/14/19 11:46 Wound Center Nurse 1 [Ulcer Assessment] #2- RT CALF CLUSTER -Combined with other wound No -Current Size (cm) - Length 0.6 -Current Size (cm) - Width 0.7 -Current Size (cm) - Depth 0.1 -Total Square Cm 0.42 -Photo Taken No -Epithelialization None Present -Tunneling No -Undermining/Tunneling No -Circular Undermining No -Classification - Thickness Full Thickness without Exposed Support Structure -Exudate Amt Small -Exudate Type Serous -Wound Margin Fibrotic Scar, Thickened Scar -Granulation Amt None Present (0 %) -Granulation Quality N/A -Slough/Fibrin Yes -Necrosis Amt Large (67-100%) -Necrotic Tissue Type Adherent Slough -Structure Exposed None/Limited to Skin Breakdown -Texture (Maria Guadalupe-wound Skin Appearance) Assessed, Scarring -Moisture (Maria Guadalupe-wound Skin Appearance Assessed,Dry/ ) Scaly -Color (Maria Guadalupe-wound Skin Appearance) No Abnormality, Assessed -Temperature (Maria Guadalupe-wound Skin No Abnormality Appearance) (Pt Warm) -Tenderness on Palpation (Maria Guadalupe-wound No Skin Appearance) -Ulcer Cleansing Rinsed/ Irrigated with Saline -Foul Odor after Cleansing No -Anesthetic Used 4% Lidocaine Solution WC - Nurse 2 - General Ulcer CM Notes Start: 03/14/19 11:46 Freq: Status: Active Protocol: Activity Type Activity Date Activity User E-Sign Co-Sign Detail Recorded Client Recorded Date Recorded By Document 03/14/19 12:08 MW [id number] 03/14/19 12:15 MW 03/14/19 12:08 Wound Center Nurse 2 [Procedure/Treatment] -Time 12:08 -Correct Patient Yes -Correct Side, Site, Position Yes -Correct Procedure Yes -Procedure Performed Yes -Type of Procedure Debridement -Clinical Debridement Subcutaneous -Post Debridement Size (cm) - Length 0.3 -Post Debridement Size (cm) - Width 0.8 -Post Debridement Size (cm) - Depth 0.1 -Total Square Cm 0.24 -Wound/Ulcer Outcome Not Healed -Ulcer Cleansing Rinsed/ Irrigated with Saline -Foul Odor after Cleansing No -Bioengineered Tissue No -Bleeding Controlled with Pressure -Offloading No -Treatment Response Procedure Tolerated Well [See Physician Procedure note for Specifics] Pain Scale: 0-10 Numeric [Pain] -Is Patient Pain Free? Yes Musculoskeletal: No Muscle Wasting Neurological: Cranial nerves II-XII grossly intact Psych/Mental Status: Normal Affect Debridement Note Post-Debridement Measurements/Treatment WC - Nurse 2 - General Ulcer CM Notes Start: 03/14/19 11:46 Freq: Status: Active Protocol: Activity Type Activity Date Activity User E-Sign Co-Sign Detail Recorded Client Recorded Date Recorded By Document 03/14/19 12:08 MW [id number] 03/14/19 12:15 MW 03/14/19 12:08 Wound Center Nurse 2 #2- RT CALF CLUSTER -Time 12:08 -Correct Patient Yes -Correct Side, Site, Position Yes -Correct Procedure Yes -Procedure Performed Yes -Type of Procedure Debridement -Clinical Debridement Subcutaneous -Post Debridement Size (cm) - Length 0.3 -Post Debridement Size (cm) - Width 0.8 -Post Debridement Size (cm) - Depth 0.1 -Total Square Cm 0.24 -Wound/Ulcer Outcome Not Healed -Ulcer Cleansing Rinsed/ Irrigated with Saline -Foul Odor after Cleansing No -Bioengineered Tissue No -Bleeding Controlled with Pressure -Offloading No -Treatment Response Procedure Tolerated Well Pain Scale: 0-10 Numeric Is Patient Pain Free? Yes Wound debrided: Right lower extremity ( Posterior Calf ) Wound Grade/Stage: Stage III Type of Debridement: Excisional debridement Anesthesia Used: 4% Lidocaine Solution Depth: Down to and including healthy tissue, in the subcutaneous layer Percentage of wound debrided: 100 Instrument Used: 3mm curette Tissue Removed: Slough and devitalized tissue Severity: Fat Layer Exposed Amount of bleeding with debridement: Mild Bleeding Controlled with: Pressure Patient tolerated procedure well Assessment/Plan Active Problems Wound of right lower extremity (Chronic) Anterior and posterior right lower extremity traumatic, penetrating with fat layer exposed. Bilateral lower extremity edema (Chronic) Assessment: Nonhealing traumatic right lower extremity anterior and posterior ulcers status post work injury with fat layer exposed. Plan: Debridement done as documented above, procedure was well-tolerated. Continue Aquacel daily with Adaptic over top. Double layer Tubigrip's for edema management. Continue increased protein intake. Elevate lower extremities when seated in bed. All her questions were answered and she was advised to call with any further questions or concerns. Follow-up in 2 weeks due to the holiday.
[2019-03-20 11:33] VITALS: BP 130/70; PULSE 50; RESP 16; TEMP 36.1; BMI 39.6
--- NOTE | 2019-03-20 16:21 | PCM.WC.PN ---
(1) Bilateral lower extremity edema Status: Chronic Current Visit: Yes Code(s): R60.0 - Localized edema (2) Wound of right lower extremity Status: Chronic Current Visit: Yes Code(s): S81.801A - Unspecified open wound, right lower leg, initial encounter Comment: Anterior and posterior right lower extremity traumatic, penetrating with fat layer exposed. Type of Wound Date of Service: 03/20/19 Chief Complaint: Nonhealing right lower extremity wound status post work injury. History of Wound: Ms. Rodarte is a 53-year-old who was referred here due to nonhealing right lower extremity wound. 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 Initially seen in emergency room and had stitches to the wound. Followed up at an urgent care for removal however, on removal of the sutures posterior right lower extremity wounds was sensitive opened up. Subsequently seen by her primary care physician and was told to pack wound with gauze/Hydrogen peroxide which she indeed twice a day and again noted worsening of the wound. She reports drainage from the wound but denies chills, fever otherwise feeling of unwell. She states that she works for 12 hours standing on hard concrete most of the day. Progress of Wound: No significant change in the past week. No new concerns at this time. - Physical Exam Vital Signs Temp Pulse Resp BP 96.9 F L 50 L 16 130/70 H 03/20/19 11:33 03/20/19 11:33 03/20/19 11:33 03/20/19 11:33 General: Alert, Oriented x3, Cooperative, No apparent distress HEENT: Atraumatic, Normocephalic Oral: Moist Mucosa Neck: Supple Lungs: Normal air movement Extremities: No cyanosis Skin: Ulcer/ Wound Wound Measurements and Assessment WC - Nurse 1 - General Ulcer Measurement Start: 03/14/19 11:46 Freq: Status: Active Protocol: Activity Type Activity Date Activity User E-Sign Co-Sign Detail Recorded Client Recorded Date Recorded By Document 03/20/19 11:33 [id number] 03/20/19 11:41 BS 03/20/19 11:33 Wound Center Nurse 1 [Ulcer Assessment] #2- RT CALF CLUSTER -Combined with other wound No -Current Size (cm) - Length 0.1 -Current Size (cm) - Width 0.1 -Current Size (cm) - Depth 0.1 -Total Square Cm 0.01 -Photo Taken No -Tunneling No -Undermining/Tunneling No -Classification - Thickness Full Thickness without Exposed Support Structure -Exudate Amt None Present -Texture (Maria Guadalupe-wound Skin Appearance) Assessed -Moisture (Maria Guadalupe-wound Skin Appearance Assessed,Dry/ ) Scaly -Color (Maria Guadalupe-wound Skin Appearance) Assessed, Hemosiderin Staining -Temperature (Maria Guadalupe-wound Skin No Abnormality Appearance) (Pt Warm) -Tenderness on Palpation (Maria Guadalupe-wound No Skin Appearance) -Ulcer Cleansing Rinsed/ Irrigated with Saline -Foul Odor after Cleansing No -Anesthetic Used 5% Lidocaine Gel [Edema Assessment] -Lower Limb Edema Present Yes -Point of measurement (cm from the 15.5 medial instep) -Point of Measurement (cm from the 11 medial instep) WC - Nurse 2 - General Ulcer CM Notes Start: 03/14/19 11:46 Freq: Status: Active Protocol: Activity Type Activity Date Activity User E-Sign Co-Sign Detail Recorded Client Recorded Date Recorded By Document 03/20/19 12:30 MW [id number] 03/20/19 12:31 MW 03/20/19 12:30 Wound Center Nurse 2 [Procedure/Treatment] #2- RT CALF CLUSTER -Time 12:30 -Correct Patient Yes -Correct Side, Site, Position Yes -Correct Procedure Yes -Procedure Performed Yes -Type of Procedure Debridement -Clinical Debridement Subcutaneous -Post Debridement Size (cm) - Length 0.4 -Post Debridement Size (cm) - Width 0.6 -Post Debridement Size (cm) - Depth 0.1 -Total Square Cm 0.24 -Wound/Ulcer Outcome Not Healed -Ulcer Cleansing Rinsed/ Irrigated with Saline -Foul Odor after Cleansing No -Bioengineered Tissue No -Bleeding Controlled with Pressure -Offloading No -Treatment Response Procedure Tolerated Well [See Physician Procedure note for Specifics] Pain Scale: 0-10 Numeric [Pain] -Is Patient Pain Free? Yes Musculoskeletal: No Muscle Wasting Psych/Mental Status: Normal Affect Debridement Note Post-Debridement Measurements/Treatment WC - Nurse 2 - General Ulcer CM Notes Start: 03/14/19 11:46 Freq: Status: Active Protocol: Activity Type Activity Date Activity User E-Sign Co-Sign Detail Recorded Client Recorded Date Recorded By Document 03/14/19 12:08 MW [id number] 03/14/19 12:15 MW Document 03/20/19 12:30 MW [id number] 03/20/19 12:31 MW 03/14/19 03/20/19 12:08 12:30 Wound Center Nurse 2 #2- RT CALF CLUSTER -Time 12:08 12:30 -Correct Patient Yes Yes -Correct Side, Site, Position Yes Yes -Correct Procedure Yes Yes -Procedure Performed Yes Yes -Type of Procedure Debridement Debridement -Clinical Debridement Subcutaneous Subcutaneous -Post Debridement Size (cm) - Length 0.3 0.4 -Post Debridement Size (cm) - Width 0.8 0.6 -Post Debridement Size (cm) - Depth 0.1 0.1 -Total Square Cm 0.24 0.24 -Wound/Ulcer Outcome Not Healed Not Healed -Ulcer Cleansing Rinsed/ Rinsed/ Irrigated with Irrigated with Saline Saline -Foul Odor after Cleansing No No -Bioengineered Tissue No No -Bleeding Controlled with Pressure Pressure -Offloading No No -Treatment Response Procedure Procedure Tolerated Well Tolerated Well Pain Scale: 0-10 Numeric Is Patient Pain Free? Yes Yes Wound debrided: Right Calf Wound Grade/Stage: Stage 3 Type of Debridement: Excisional debridement Anesthesia Used: 4% Lidocaine Solution Depth: Down to and including healthy tissue, in the subcutaneous layer Percentage of wound debrided: 100 Instrument Used: 5mm curette Tissue Removed: Slough and devitalized tissue Severity: Fat Layer Exposed Amount of bleeding with debridement: Mild Bleeding Controlled with: Pressure Patient tolerated procedure well Assessment/Plan Active Problems Wound of right lower extremity (Chronic) Anterior and posterior right lower extremity traumatic, penetrating with fat layer exposed. Bilateral lower extremity edema (Chronic) Assessment: Nonhealing traumatic right lower extremity anterior and posterior ulcers status post work injury with fat layer exposed. Plan: Debridement done as documented above, procedure was well-tolerated. Switch to pomogran daily with adaptic over top. Double layer Tubigrip's for edema management. Continue increased protein intake. Elevate lower extremities when seated in bed. All her questions were answered and she was advised to call with any further questions or concerns. Follow-up in 1 week.
[2019-03-28 11:05] VITALS: BP 116/89; PULSE 55; RESP 18; TEMP 36.1; BMI 39.6
--- NOTE | 2019-03-28 11:24 | PN.PCM_ITS ---
(1) Bilateral lower extremity edema Status: Chronic Current Visit: Yes Code(s): R60.0 - Localized edema (2) Wound of right lower extremity Status: Chronic Current Visit: Yes Code(s): S81.801A - Unspecified open wound, right lower leg, initial encounter Comment: Anterior and posterior right lower extremity traumatic, penetrating with fat layer exposed. Type of Wound Date of Service: 03/28/19 Chief Complaint: Nonhealing right lower extremity wound status post work injury. History of Wound: Ms. Rodarte is a 53-year-old who was referred here due to nonhealing right lower extremity wound. 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 Initially seen in emergency room and had stitches to the wound. Followed up at an urgent care for removal however, on removal of the sutures posterior right lower extremity wounds was sensitive opened up. Subsequently seen by her primary care physician and was told to pack wound with gauze/Hydrogen peroxide which she indeed twice a day and again noted worsening of the wound. She reports drainage from the wound but denies chills, fever otherwise feeling of unwell. She states that she works for 12 hours standing on hard concrete most of the day. Progress of Wound: Healed. No new cocnerns at this time. - Physical Exam Vital Signs Temp Pulse Resp BP 97 F L 55 L 18 116/89 H 03/28/19 11:05 03/28/19 11:05 03/28/19 11:05 03/28/19 11:05 General: Alert, Oriented x3, Cooperative, No apparent distress HEENT: Atraumatic, Normocephalic Oral: Moist Mucosa Neck: Supple Lungs: Normal air movement Extremities: No cyanosis, Edema Wound Measurements and Assessment WC - Nurse 1 - General Ulcer Measurement Start: 03/14/19 11:46 Freq: Status: Active Protocol: Activity Type Activity Date Activity User E-Sign Co-Sign Detail Recorded Client Recorded Date Recorded By Document 03/28/19 11:05 [id number] 03/28/19 11:08 03/28/19 11:05 Wound Center Nurse 1 [Ulcer Assessment] #2- RT CALF CLUSTER -Combined with other wound No -Current Size (cm) - Length 0.8 -Current Size (cm) - Width 0.5 -Current Size (cm) - Depth 0.1 -Total Square Cm 0.40 -Photo Taken No -Epithelialization None Present -Undermining/Tunneling No -Circular Undermining No -Exudate Amt None Present -Wound Margin Flat & Intact -Granulation Amt None Present (0 %) -Granulation Quality N/A -Slough/Fibrin Yes -Necrosis Amt Large (67-100%) -Necrotic Tissue Type Adherent Slough -Structure Exposed None/Limited to Skin Breakdown -Texture (Maria Guadalupe-wound Skin Appearance) No Abnormality, Assessed -Moisture (Maria Guadalupe-wound Skin Appearance No Abnormality, ) Assessed -Color (Maria Guadalupe-wound Skin Appearance) No Abnormality, Assessed -Temperature (Maria Guadalupe-wound Skin No Abnormality Appearance) (Pt Warm) -Tenderness on Palpation (Maria Guadalupe-wound No Skin Appearance) -Foul Odor after Cleansing No -Anesthetic Used 5% Lidocaine Gel [Edema Assessment] -Lower Limb Edema Present No Musculoskeletal: No Muscle Wasting Neurological: Cranial nerves II-XII grossly intact Psych/Mental Status: Normal Affect Debridement Note Post-Debridement Measurements/Treatment WC - Nurse 2 - General Ulcer CM Notes Start: 03/14/19 11:46 Freq: Status: Active Protocol: Activity Type Activity Date Activity User E-Sign Co-Sign Detail Recorded Client Recorded Date Recorded By Document 03/14/19 12:08 MW [id number] 03/14/19 12:15 MW Document 03/20/19 12:30 MW [id number] 03/20/19 12:31 MW 03/14/19 03/20/19 12:08 12:30 Wound Center Nurse 2 #2- RT CALF CLUSTER -Time 12:08 12:30 -Correct Patient Yes Yes -Correct Side, Site, Position Yes Yes -Correct Procedure Yes Yes -Procedure Performed Yes Yes -Type of Procedure Debridement Debridement -Clinical Debridement Subcutaneous Subcutaneous -Post Debridement Size (cm) - Length 0.3 0.4 -Post Debridement Size (cm) - Width 0.8 0.6 -Post Debridement Size (cm) - Depth 0.1 0.1 -Total Square Cm 0.24 0.24 -Wound/Ulcer Outcome Not Healed Not Healed -Ulcer Cleansing Rinsed/ Rinsed/ Irrigated with Irrigated with Saline Saline -Foul Odor after Cleansing No No -Bioengineered Tissue No No -Bleeding Controlled with Pressure Pressure -Offloading No No -Treatment Response Procedure Procedure Tolerated Well Tolerated Well Pain Scale: 0-10 Numeric Is Patient Pain Free? Yes Yes No debridement was completed today Assessment/Plan Active Problems Wound of right lower extremity (Chronic) Anterior and posterior right lower extremity traumatic, penetrating with fat layer exposed. Bilateral lower extremity edema (Chronic) Assessment: Nonhealing traumatic right lower extremity anterior and posterior ulcers status post work injury with fat layer exposed. Plan: Healed. No new concerns at this time. Adaptic over area for 2 weeks. Continue Tubu battery tester field for edema management. Advised to call with any concerns. Discharged from the wound clinic.
== END 2019-04-03 23:59 ==
LOC: WC 10:45
PROVIDERS: Visit Provider Internal Medicine
DX: S81.831A Puncture wound without foreign body, right lower leg, initial encounter (principal); W31.9XXA Contact with unspecified machinery, initial encounter; R60.0 Localized edema
CPT/HCPCS: 11042; 99213; G0463